=== PATIENT | female | born 1965 | race Caucasian/White ===

== ENCOUNTER 2018-08-18 22:50 | Emergency (ER) | payer BC, OTHER ==
--- OUTSIDE RECORDS SUMMARY | 2018-08-18 22:53 | XMS REPORT | Continuity of Care Document ---
:1965 Author Organization Interface Problems Problem Status Onset Date Classification Date Comments Source Reported Medications Medication Details Route Status Patient Ordering Order Source Instructions Provider Date Allergies, Adverse Reactions, Alerts Substance Category Reaction Severity Reaction Status Date Comments Source type Reported Immunizations Immunization Date Given Site Status Last Updated Comments Source Results Order Results Value Reference Date Interpretation Comments Source Name Range Vital Signs Vital Sign Value Date Comments Source Encounters Location Location Encounter Encounter Reason Attending ADM DC Status Source Details Type Number For Provider Date Date Visit Outpatient [id number] DON[place] 06/23 [facility] [place] [facility] Outpatient [id number] [place] 07/03 [facility] [place] [facility] Procedures Procedure Code Date Perfomer Comments Source
[2018-08-18 23:50] LABS: Absolute Lymphocytes (CBC) 2.7 K/uL (0.7-4.9); Absolute Monocytes 0.7 K/uL (0.1-1.3); Absolute Neutrophil 5.5 K/uL (1.8-8.0); Basophils % 0.4 % (0-1.3); Eosinophils % 2.4 % (0-4.4); Hematocrit 40.9 % (36.0-45.0); Lymphocytes % 29.8 % (15.3-44.8); MPV 8.9 fL (7.6-11.3); Monocytes % 7.9 % (3.3-12.3); RBC Red Blood Cell Count 4.76 M/uL (3.86-4.86)
[2018-08-19 00:09] LABS: BUN Blood Urea Nitrogen 21 mg/dL (7-18); Bicarbonate 27 mmol/L (21-32); Glucose Level 104 mg/dL (74-106); Potassium 4.2 mmol/L (3.5-5.1); Sodium Level 142 mmol/L (136-145); Troponin (Emerg Dept Use Only) < 0.02 ng/mL (0.0-0.045)
[2018-08-19] MEDS ORDERED: cloNIDine HCl 0.1 MG TAB ONE (01:06)
--- NOTE | 2018-08-19 01:27 | EDPHYS ---
Physician Documentation [facility] Name: Priti Calhoun Age: 53 yrs Sex: Female : 1965 Arrival Date: 08/18/2018 Time: 22:57 Bed 5 Private MD: Alexandro Dobbs E ED Physician Cosme Martinez HPI: 08/19 00:03 This 53 yrs old Female presents to ER via Ambulatory with complaints of High rn Blood Pressure. 00:03 The patient has elevated blood pressure and discovered this at home. Onset: The rn symptoms/episode began/occurred at an unknown time. Modifying factors:. Severity of symptoms: At its worst the blood pressure was moderate, in the emergency department the blood pressure is improved. The patient has experienced similar episodes in the past. Reports high blood pressure today, 170/100s, reports 2 weeks or so of intermittent vertigo, denies chest pain/sob/abd pain/focal neurological complaint. Thinks her current BP med is not working, but also doesn't take it regularly. . 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 - Social history:: Smoking status: Patient/guardian denies using tobacco, Patient uses alcohol, occasionally. Patient/guardian denies using street drugs. - Ebola Screening: : Patient negative for fever greater than or equal to 101.5 degrees Fahrenheit, and additional compatible Ebola Virus Disease symptoms Patient denies exposure to infectious person Patient denies travel to an Ebola-affected area in the 21 days before illness onset No symptoms or risks identified at this time. - Family history:: not pertinent. - Hospitalizations: : No recent hospitalization is reported. ROS: 08/19 00:03 Constitutional: Negative for fever, chills, and weight loss, Eyes: Negative for injury, rn pain, redness, and discharge, Neck: Negative for injury, pain, and swelling, Cardiovascular: Negative for chest pain, palpitations, and edema, Respiratory: Negative for shortness of breath, cough, wheezing, and pleuritic chest pain, Abdomen/GI: Negative for abdominal pain, nausea, vomiting, diarrhea, and constipation, MS/Extremity: Negative for injury and deformity, Skin: Negative for injury, rash, and discoloration, Neuro: Negative for headache, weakness, numbness, tingling, and seizure. Exam: 00:03 Constitutional: This is a well developed, well nourished patient who is awake, alert, rn and in no acute distress. Head/Face: Normocephalic, atraumatic. Eyes: Pupils equal round and reactive to light, extra-ocular motions intact. Lids and lashes normal. Conjunctiva and sclera are non-icteric and not injected. Cornea within normal limits. Periorbital areas with no swelling, redness, or edema. Neck: Trachea midline, no thyromegaly or masses palpated, and no cervical lymphadenopathy. Supple, full range of motion without nuchal rigidity, or vertebral point tenderness. No Meningismus. Cardiovascular: Regular rate and rhythm. No JVD. No pulse deficits. Respiratory: Lungs have equal breath sounds bilaterally, clear to auscultation, No increased work of breathing, no retractions or nasal flaring. Abdomen/GI: soft, non-tender MS/ Extremity: Pulses equal, no cyanosis. Neurovascular intact. Full, normal range of motion. Equal circumference. Neuro: Awake and alert, GCS 15, oriented to person, place, time, and situation. Cranial nerves II-XII grossly intact. Motor strength 5/5 in all extremities. Sensory grossly intact. Cerebellar exam normal. Vital Signs: 08/18 23:13 BP 179 / 117; Pulse 84; Resp 16; Temp 98.; Pulse Ox 99% on R/A; Weight 86.18 kg; Height ch 5 ft. 9 in. (175.26 cm); Pain 6/10; 23:47 BP 161 / 108; Pulse 74; Resp 16; Pulse Ox 99% on R/A; Pain 6/10; ch 08/19 00:54 BP 158 / 104; Pulse 76; Resp 16; Pulse Ox 97% on R/A; aa1 01:37 BP 155 / 92; Pulse 73; Resp 16; Pulse Ox 96% on R/A; aa1 08/18 23:13 Body Mass Index 28.06 (86.18 kg, 175.26 cm) ch MDM: 08/18 23:11 Patient medically screened. rn 08/19 01:25 Differential diagnosis: hypertensive crisis, Malignant HTN. Data reviewed: vital signs, rn nurses notes, lab test result(s), EKG, radiologic studies, CT scan, and as a result, I will discharge patient. Counseling: I had a detailed discussion with the patient and/or guardian regarding: the historical points, exam findings, and any diagnostic results supporting the discharge/admit diagnosis, lab results, radiology results, the need for outpatient follow up, to return to the emergency department if symptoms worsen or persist or if there are any questions or concerns that arise at home. Response to treatment: the patient's symptoms have markedly improved after treatment, and as a result, I will discharge patient. Special discussion: I discussed with the patient/guardian in detail that at this point there is no indication for admission to the hospital. It is understood, however, that if the symptoms persist or worsen the patient needs to return immediately for re-evaluation. Based on the history and exam findings, there is no indication for further emergent testing or inpatient evaluation. I discussed with the patient/guardian the need to see the primary care provider for further evaluation of the symptoms. ED course: Recommended BP diary and f/u with pcp for further BP management. . 08/18 23:29 Order name: CBC with Diff; Complete Time: 00:31 rn 08/18 23:29 Order name: Basic Metabolic Panel; Complete Time: 00:31 rn 08/18 23:29 Order name: Troponin (emerg Dept Use Only); Complete Time: 00:31 rn 08/18 23:29 Order name: CT Head Brain wo Cont rn 08/18 23:29 Order name: IV Start; Complete Time: 23:49 rn 08/18 23:29 Order name: EKG; Complete Time: 23:29 rn 08/18 23:29 Order name: EKG - Nurse/Tech; Complete Time: 00:06 rn Administered Medications: 00:59 Drug: cloNIDine 0.1 mg Route: PO; aa1 01:50 Follow up: Response: No adverse reaction; Blood pressure is lowered aa1 01:40 Drug: [place] 5 mg-325 mg 1 tabs Route: PO; aa1 01:51 Follow up: Response: No adverse reaction; Medication administered at discharge. aa1 01:40 Drug: Motrin 600 mg Route: PO; aa1 01:50 Follow up: Response: No adverse reaction; Medication administered at discharge. aa1 Disposition: 08/19/18 01:26 Discharged to Home. Impression: Hypertension, Headache. - Condition is Stable. - Discharge Instructions: Hypertension. - Medication Reconciliation Form, Thank You Letter, Antibiotic Education, Prescription Opioid Use form. - Follow up: Private Physician; When: As needed; Reason: Recheck today's complaints, Re-evaluation by your physician. - Problem is new. - Symptoms have improved. Signatures: Dispatcher [employer] EDMS Arlene Blackmon RN RN Kristin Turner RN RN aa1 Cosme Martinez MD MD registry rn: (The following items were deleted from the chart) 01:54 01:26 08/19/2018 01:26 Discharged to Home. Impression: Hypertension; Headache. aa1 Condition is Stable. Forms are Medication Reconciliation Form, Thank You Letter, Antibiotic Education, Prescription Opioid Use. Follow up: Private Physician; When: As needed; Reason: Recheck today's complaints, Re-evaluation by your physician. Problem is new. Symptoms have improved. rn
--- NOTE | 2018-08-19 01:27 | ER ---
Nurse's Notes [facility] Name: Priti Calhoun Age: 53 yrs Sex: Female : 1965 Arrival Date: 08/18/2018 Time: 22:57 Bed 5 Private MD: Alexandro Dobbs E Diagnosis: Hypertension;Headache Presentation: 08/18 23:10 Presenting complaint: Patient states: Vertigo for the past 2 weeks, my blood pressure ch is up, headache for the past hour. the pharmacy changed my pills, not my prescription but the pills are different and I dont think they are working any more. +nausea, dizziness, headache to top of head. Transition of care: patient was not received from another setting of care. Onset of symptoms was August 03, 2018. Risk Assessment: Do you want to hurt yourself or someone else? Patient reports no desire to harm self or others. Initial Sepsis Screen: Does the patient meet any 2 criteria? No. Patient's initial sepsis screen is negative. Does the patient have a suspected source of infection? No. Patient's initial sepsis screen is negative. Care prior to arrival: None. 23:10 Method Of Arrival: Ambulatory 23:10 Acuity: PAUL 3 ch Triage Assessment: 23:13 General: Appears in no apparent distress. comfortable, Behavior is calm, cooperative, ch appropriate for age. Pain: Complains of pain in top of head, forehead, left frontal area, left temporal area, right frontal area and right temporal area Pain currently is 6 out of 10 on a pain scale. Pain began suddenly, 1 hour ago. Neuro: No deficits noted. Level of Consciousness is awake, alert, obeys commands, Oriented to person, place, time, situation, Prepress Operator are equal bilaterally Moves all extremities. Full function Gait is steady, Speech is normal, Facial symmetry appears normal, Facial symmetry: tongue is midline, Pupils are PERRLA, Reports dizziness, headache. Respiratory: Airway is patent Respiratory effort is even, unlabored, Breath sounds are clear bilaterally. GI: No signs and/or symptoms were reported involving the gastrointestinal system. Derm: Skin is pink, warm \T\ dry. 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 - Social history:: Smoking status: Patient/guardian denies using tobacco, Patient uses alcohol, occasionally. Patient/guardian denies using street drugs. - Ebola Screening: : Patient negative for fever greater than or equal to 101.5 degrees Fahrenheit, and additional compatible Ebola Virus Disease symptoms Patient denies exposure to infectious person Patient denies travel to an Ebola-affected area in the 21 days before illness onset No symptoms or risks identified at this time. - Family history:: not pertinent. - Hospitalizations: : No recent hospitalization is reported. Screenin:16 Abuse screen: Denies threats or abuse. Denies injuries from another. Nutritional ch screening: No deficits noted. Tuberculosis screening: No symptoms or risk factors identified. Fall Risk None identified. Assessment: 23:16 Reassessment: Patient appears in no apparent distress at this time. Patient and/or ch family updated on plan of care and expected duration. Pain level reassessed. 23:47 Reassessment: Patient appears in no apparent distress at this time. No changes from ch previously documented assessment. Patient and/or family updated on plan of care and expected duration. Pain level reassessed. Patient is alert, oriented x 3, equal unlabored respirations, skin warm/dry/pink. 08/19 01:04 Reassessment: Patient appears in no apparent distress at this time. Patient and/or aa1 family updated on plan of care and expected duration. Pain level reassessed. Patient is alert, oriented x 3, equal unlabored respirations, skin warm/dry/pink. Pt resting quietly. Will d/c once DBP <100. 01:53 Reassessment: Patient appears in no apparent distress at this time. Patient is alert, aa1 oriented x 3, equal unlabored respirations, skin warm/dry/pink. Discussed d/c \T\ f/u instructions with pt \T\ significant other; denies questions or concerns at this time Patient states feeling better. Vital Signs: 08/18 23:13 BP 179 / 117; Pulse 84; Resp 16; Temp 98.; Pulse Ox 99% on R/A; Weight 86.18 kg; Height 5 ft. 9 in. (175.26 cm); Pain 6/10; 23:47 BP 161 / 108; Pulse 74; Resp 16; Pulse Ox 99% on R/A; Pain 6/10; ch 08/19 00:54 BP 158 / 104; Pulse 76; Resp 16; Pulse Ox 97% on R/A; aa1 01:37 BP 155 / 92; Pulse 73; Resp 16; Pulse Ox 96% on R/A; aa1 08/18 23:13 Body Mass Index 28.06 (86.18 kg, 175.26 cm) ED Course: 08/18 22:57 Patient arrived in ED. al2 22:57 Alexandro Dobbs MD is Private Physician. al2 23:02 Arlene Blackmon, TAYLOR is Primary Nurse. ch 23:11 Cosme Martinez MD is Attending Physician. rn 23:12 Triage completed. 23:13 Arm band placed on left wrist. Patient placed in an exam room, on a stretcher, on pulse oximetry. 23:16 No apparent distress. Resting quietly. ch 23:16 Patient has correct armband on for positive identification. Placed in gown. Bed in low ch position. Call light in reach. Side rails up X 1. Adult w/ patient. 23:16 No provider procedures requiring assistance completed. 23:47 Pulse ox on. NIBP on. Warm blanket given. 23:47 Initial lab(s) drawn, by sc, sent to lab. 08/19 00:[address] via wheelchair. kw1 00:05 CT completed. Patient tolerated procedure well. Patient moved back from CT. kw1 00:07 CT Head Brain wo Cont In Process Unspecified. EDMS 00:54 Kristin Turner, TAYLOR is Primary Nurse. aa1 01:53 Patient did not have IV access during this emergency room visit. aa1 Administered Medications: 00:59 Drug: cloNIDine 0.1 mg Route: PO; aa1 01:50 Follow up: Response: No adverse reaction; Blood pressure is lowered aa1 01:40 Drug: [place] 5 mg-325 mg 1 tabs Route: PO; aa1 01:51 Follow up: Response: No adverse reaction; Medication administered at discharge. aa1 01:40 Drug: Motrin 600 mg Route: PO; aa1 01:50 Follow up: Response: No adverse reaction; Medication administered at discharge. aa1 Outcome: 01:26 Discharge ordered by . rn 01:53 Discharged to home ambulatory, with significant other. aa1 01:53 Condition: good 01:53 Discharge instructions given to patient, significant other, Instructed on discharge instructions, follow up and referral plans. medication usage, Demonstrated understanding of instructions, follow-up care, medications. 01:54 Patient left the ED. aa1 Signatures: Dispatcher [employer] EDMS Arlene Blackmon, RN Kristin Linton ch, RN RN aa1 Cosme Martinez MD MD rn Wilhelm, Kimberly kw1 Atiya Lara2
[2018-08-19] MEDS ORDERED: IBUPROFEN 200 MG TAB PO ONE (01:49)
[2018-08-19] MEDS ORDERED: IBUPROFEN 400 MG TAB ONE (01:49)
[2018-08-19] MEDS ORDERED: HYDROCODONE/APAP 5/325 MG TAB ONE (01:49)
--- NOTE | 2018-08-19 12:12 | RAD REPORT ---
EXAM DESCRIPTION: CT - Head Brain Wo Cont - 08/19/2018 5:47 am CLINICAL HISTORY: HTN;Dizziness Hypertension, headache COMPARISON: No comparisons TECHNIQUE: All CT scans are performed using dose optimization technique as appropriate and may inclu de automated exposure control or mA/KV adjustment according to patient size. FINDINGS: No intracranial hemorrhage, hydrocephalus or extra-axial fluid collection.No areas of brai n edema or evidence of midline shift. The paranasal sinuses and mastoids are clear. The calvarium is intact. IMPRESSION: No acute intracranial abnormality.
--- NOTE | 2018-08-19 16:28 | EKG ---
Test Date: 2018-08-18 Test Time: 23:51:19 Organizational Development Consultant: MEASUREMENT RESULTS: Intervals: Rate: 69 MD: 136 QRSD: 72 QT: 396 QTc: 424 [place]: P: 58 MD: 136 QRS: 63 T: 37 INTERPRETIVE STATEMENTS: Normal sinus rhythm with sinus arrhythmia Normal ECG Compared to ECG 10/15/1997 12:26:00 No significant changes Electronically Signed On 08-19-18 16:27:22 DIGESTER CAPPER by Valente Lucas
== END 2018-08-19 01:54 | disposition home or self-care (01) ==
LOC: ER 22:50
DX: I10 Essential (primary) hypertension (principal); Z98.82 Breast implant status
CPT/HCPCS: 36415; 70450; 80048; 84484; 85025; 93005; 99284

== ENCOUNTER 2022-07-14 18:14 | Emergency (ER) | payer OTHER ==
--- NOTE | 2022-07-14 19:06 | RAD REPORT ---
EXAM DESCRIPTION: RAD - Chest Single View - 07/14/2022 6:50 pm CLINICAL HISTORY: BLUNT CHEST TRAUMA Chest pain. COMPARISON: CHEST PA AND LAT 2 VIEW dated 07/11/2013 FINDINGS: Portable technique limits examination quality. The lungs are grossly clear. The heart is normal in size. No displaced fractures. IMPRESSION: No acute intrathoracic process suspected.
--- NOTE | 2022-07-14 19:07 | RAD REPORT ---
EXAM DESCRIPTION: RAD - Pelvis - 07/14/2022 6:50 pm CLINICAL HISTORY: BLUNT TRAUMA COMPARISON: No comparisons FINDINGS: No fracture, dislocation or radiographic evidence of AVN. IMPRESSION: Negative study.
[2022-07-14 19:20] LABS: Absolute Lymphocytes (CBC) 1.2 K/uL (0.7-4.9); Hematocrit 44.5 % (36.0-45.0); Lymphocytes % 6.3 % (15.3-44.8); MCV 86.9 fL (80-100); MPV 8.4 fL (7.6-11.3); RBC Red Blood Cell Count 5.12 M/uL (3.86-4.86)
[2022-07-14 19:25] LABS: Protime INR 1.08
[2022-07-14 19:33] LABS: Potassium 4.2 mmol/L (3.5-5.1)
--- NOTE | 2022-07-14 20:06 | RAD REPORT ---
EXAM DESCRIPTION: CT - Head C Spine Cap Clara Rush - 07/14/2022 7:53 pm CLINICAL HISTORY: Trauma, head and neck injury. Chest, abdomen and pelvis pain. fall off horse, possible LOC, sternal pain COMPARISON: No comparisons TECHNIQUE: CT head without contrast. CT cervical spine without contrast with coronal and sagittal reformatted images. CT chest, abdomen and pelvis with IV contrast (approximately 100 mL nonionic IV contrast) with barbosa l and sagittal reformatted images of the spine. All CT scans are performed using dose optimization technique as appropriate and may include automated exposure control or mA/KV adjustment according to patient size. FINDINGS: CT HEAD WITHOUT CONTRAST: No intracranial hemorrhage, hydrocephalus or extra-axial fluid collection. No areas of brain edema o r midline shift. The paranasal sinuses and mastoids are clear. The calvarium is intact. CT CERVICAL SPINE WITHOUT CONTRAST: No fracture or subluxation. The prevertebral soft tissues are normal in thickness.There is a 3.5 cm right thyroid nodule present. CT CHEST, ABDOMEN, PELVIS WITH CONTRAST: The lungs are clear.No pneumothorax or pericardial/pleural fluid. No evidence of intra-abdominal visceral injury, free fluid or free air. No concerning pelvic findings. No fractures. IMPRESSION: Negative for acute traumatic findings. Suggests nonemergent follow-up ultrasound assessment of the large right thyroid nodule described reji ortiz
--- NOTE | 2022-07-14 20:32 | EDPHYS ---
Physician Documentation [facility] Name: Priti Calhoun Age: 57 yrs Sex: Female : 1965 Arrival Date: 07/14/2022 Time: 18:16 Bed 3 Private MD: ED Physician Julius Ornelas HPI: 07/14 18:25 This 57 yrs old Female presents to ER via Unassigned with complaints of Trauma rn Complaint. 18:25 Trauma demographics: Location of Injury: The injury occurred outdoors. Mechanism of rn injury: fall, possible crush. Associated injuries: The patient sustained injury to the head, neck injury, injury to the chest. Onset: The symptoms/episode began/occurred just prior to arrival. The patient has not experienced similar symptoms in the past. The patient has not recently seen a physician. 18:25 Pt s/p fall from horse with horse possibly landing on her, possible LOC, patient does rn not remember events of what happened. No blood thinners. Reports pain to head and chest. . Historical: - Allergies: 18:35 No Known Allergies; jl7 - Home Meds: 18:35 irbesartan 150 mg Oral tab 1 tab once daily [Active]; jl7 - PMHx: 18:35 Hypertension; jl7 - Immunization history:: Client reports having NOT received the Covid vaccine. - Social history:: Smoking status: Patient denies any tobacco usage or history of. - Immunization history: Last tetanus immunization: unknown. - Family history:: not pertinent. - Hospitalizations: : No recent hospitalization is reported. ROS: 18:25 Constitutional: Negative for fever, chills, and weight loss, Eyes: Negative for injury, rn pain, redness, and discharge, Neck: Negative for injury, pain, and swelling, Cardiovascular: + chest pain Respiratory: Negative for shortness of breath, cough, wheezing, and pleuritic chest pain, Abdomen/GI: Negative for abdominal pain, nausea, vomiting, diarrhea, and constipation, Back: Negative for injury and pain, : Negative for injury, bleeding, discharge, and swelling, MS/Extremity: Negative for injury and deformity, Skin: Negative for injury, rash, and discoloration, Neuro: Negative for weakness, numbness, tingling, and seizure. Exam: 18:25 Constitutional: This is a well developed, well nourished patient who is awake, alert, rn seems dazed but cooperative with exam and all questions. Head/Face: Normocephalic, atraumatic. Eyes: Pupils equal round and reactive to light, extra-ocular motions intact. Periorbital areas with no swelling, redness, or edema. ENT: No oral trauma. Neck: No midline cervical tenderness, no crepitus Chest/axilla: + tender anterior chest along sternum Cardiovascular: Regular rate and rhythm. No pulse deficits. Respiratory: Speaking full sentences, unlabored. No increased work of breathing, no retractions or nasal flaring. Abdomen/GI: Soft, non-tender Back: No spinal tenderness. Skin: Warm, dry, no lacerations MS/ Extremity: Pulses equal, no cyanosis. Neurovascular intact. Full, normal range of motion of each extremity to active and passive ROM. Equal circumference. Neuro: Awake and alert, GCS 15, oriented to person, place, not year. Cranial nerves II-XII grossly intact. Motor strength 5/5 in all extremities. Sensory grossly intact. Cerebellar exam normal. 20:41 ECG was reviewed by the Attending Physician. [facility] Vital Signs: 18:16 BP 158 / 92; Pulse 95; Resp 15; Temp 98.7; Pulse Ox 99% ; Weight 83.91 kg; Height 5 ft. jl7 5 in. (165.10 cm); Pain 5/10; 19:38 BP 131 / 78; Pulse 103; Resp 20 S; Pulse Ox 98% on R/A; as6 20:55 BP 172 / 82; Pulse 102; Resp 21 S; Pulse Ox 99% on R/A; as6 18:16 Body Mass Index 30.79 (83.91 kg, 165.10 cm) jl7 Lexie Coma Score: 18:16 Eye Response: spontaneous(4). Verbal Response: confused(4). Motor Response: obeys jl7 commands(6). Total: 14. Trauma Score (Adult): 18:16 Eye Response: spontaneous(1); Verbal Response: confused(1); Motor Response: obeys jl7 commands(2); Systolic BP: > 89 mm Hg(4); Respiratory Rate: 10 to 29 per min(4); [place] Score: 14; Trauma Score: 12 MDM: 18:17 Patient medically screened. rn 19:34 Differential diagnosis: intra-abdominal injury, closed head injury, cardiac contusion, gucci C spine fracture, T spine fracture, L spine fracture. Data reviewed: vital signs, nurses notes, lab test result(s), EKG, radiologic studies, CT scan, plain films. 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 Test interpretation: by ED physician or midlevel provider: ECG, plain radiologic studies. Counseling: I had a detailed discussion with the patient and/or guardian regarding: the historical points, exam findings, and any diagnostic results supporting the discharge/admit diagnosis, lab results, radiology results. 07/14 18:23 Order name: Basic Metabolic Panel; Complete Time: 20:30 rn 07/14 18:23 Order name: CBC with Diff; Complete Time: 19:33 rn 07/14 18:23 Order name: CT Traumagram (Head C Spine CAP W Con); Complete Time: 20:30 rn 08 18:23 Order name: XRAY Chest (1 view); Complete Time: 19:33 rn 08 18:24 Order name: Protime (+inr); Complete Time: 19:33 rn 08 18:24 Order name: Ptt, Activated; Complete Time: 19:33 rn 08 18:23 Order name: XRAY Pelvis; Complete Time: 19:33 rn 08 18:23 Order name: Labs collected and sent; Complete Time: 19:29 rn 08 18:24 Order name: EKG; Complete Time: 18:25 rn 08 18:24 Order name: EKG - Nurse/Tech; Complete Time: 19:37 rn 08 18:24 Order name: Cardiac monitoring; Complete Time: 18:39 rn 08 18:24 Order name: O2 Sat Monitoring; Complete Time: 18:39 rn 08 18:25 Order name: C-Collar; Complete Time: 18:39 rn EC:41 Rate is 102 beats/min. Rhythm is regular. QRS [place] is Normal. [place] interval is normal. gucci QRS interval is normal. QT interval is normal. No Q waves. T waves are Normal. No ST changes noted. Clinical impression: NSR w/ Non-specific ST/T Changes and No evidence of ischemia. Interpreted by me. Reviewed by me. Administered Medications: No medications were administered Disposition Summary: 07/14/22 20:31 Discharge Ordered Location: Home gucci Problem: new gucci Symptoms: have improved gucci Condition: Stable gucci Diagnosis - Strain of muscle and tendon of back wall of thorax gucci - Strain of muscle and tendon of front wall of thorax gucci - Unspecified injury of head, initial encounter gucci - Concussion with loss of consciousness of 30 minutes or less gucci Followup: gucci - With: Private Physician - When: 2 - 3 days - Reason: Recheck today's complaints, Continuance of care, Re-evaluation by your physician Discharge Instructions: - Discharge Summary Sheet gucci - Head Injury, Adult gucci - Thoracic Strain gucci - Head Injury, Adult, [id number] gucci Forms: - Medication Reconciliation Form gucci - Thank You Letter gucci - Antibiotic Education gucci - Prescription Opioid Use gucci Prescriptions: - Diclofenac Sodium 75 mg Oral Tablet Sustained Release - take 1 tablet by ORAL route 2 times per day; 30 tablet; Refills: 0, Product gucci Selection Permitted - Cyclobenzaprine 5 mg Oral Tablet - take 1 tablet by ORAL route 3 times per day As needed; 15 tablet; Refills: 0, gucci Product Selection Permitted Signatures: Dispatcher [employer] EDMS Julius Ornelas MD MD cha Nieto, Roman, MD MD rn Leal, Jahala, RN RN jl7 Alex Rosario RN RN as6 Corrections: (The following items were deleted from the chart) 18:30 18:25 Constitutional: This is a well developed, well nourished patient who is awake, rn alert, seems dazed but cooperative with exam and all questions. Head/Face: Normocephalic, atraumatic. Eyes: Pupils equal round and reactive to light, extra-ocular motions intact. Periorbital areas with no swelling, redness, or edema. Neck: No midline cervical tenderness, no crepitus Chest/axilla: + tender anterior chest along sternum Cardiovascular: Regular rate and rhythm. No pulse deficits. Respiratory: Speaking full sentences, unlabored. No increased work of breathing, no retractions or nasal flaring. Abdomen/GI: Soft, non-tender Back: No spinal tenderness. Skin: Warm, dry, no lacerations MS/ Extremity: Pulses equal, no cyanosis. Neurovascular intact. Full, normal range of motion of each extremity to active and passive ROM. Equal circumference. Neuro: Awake and alert, GCS 15, oriented to person, place, not year. Cranial nerves II-XII grossly intact. Motor strength 5/5 in all extremities. Sensory grossly intact. Cerebellar exam normal. rn
--- NOTE | 2022-07-14 20:32 | ER ---
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 Pt A\\T\\Ox2, unable to remember time and situation; reports tenderness on palpation to right chest wall. 18:16 Care prior to arrival: None. Mechanism of Injury: Crush injury from horse. Trauma event jl7 details: Injury occurred in the [facility], Injury occurred: at home. Injury occurred: July 14, 2022 Injury occurred at: 17:15. 18:16 Acuity: PAUL 2 jl7 18:16 Method Of Arrival: Wheelchair jl7 18:34 Coronavirus screen: At this time, the client does not indicate any symptoms associated jl7 with coronavirus-19. Ebola Screen: No symptoms or risks identified at this time. Initial Sepsis Screen: Does the patient meet any 2 criteria? No. Patient's initial sepsis screen is negative. Does the patient have a suspected source of infection? No. Patient's initial sepsis screen is negative. Risk Assessment: Do you want to hurt yourself or someone else? Patient reports no desire to harm self or others. Onset of symptoms was July 14, 2022 at 17:15. Trauma Activation: Alert Physician: ED Physician; Name: ; Notified At: ; Arrived At: Physician: General Surgeon; Name: ; Notified At: ; Arrived At: Physician: Radiology; Name: ; Notified At: ; Arrived At: Physician: Respiratory; Name: ; Notified At: ; Arrived At: Physician: Lab; Name: ; Notified At: ; Arrived At: Historical: - Allergies: 18:35 No Known Allergies; jl7 - Home Meds: 18:35 irbesartan 150 mg Oral tab 1 tab once daily [Active]; jl7 - PMHx: 18:35 Hypertension; jl7 - Immunization history:: Client reports having NOT received the Covid vaccine. - Social history:: Smoking status: Patient denies any tobacco usage or history of. - Immunization history: Last tetanus immunization: unknown. - Family history:: not pertinent. - Hospitalizations: : No recent hospitalization is reported. Screenin:16 Abuse screen: Denies threats or abuse. Denies injuries from another. Tuberculosis jl7 screening: No symptoms or risk factors identified. 19:49 Nutritional screening: No deficits noted. Fall Risk None identified. as6 Primary Survey: 18:16 NO uncontrolled hemorrhage observed. A: The client is alert. Airway: patent. jl7 Breathing/Chest: Respiratory effort: spontaneous, unlabored. Circulation: Skin color: pink. Disability Client is alert. Exposure/Environment: All clothing and personal items were removed. Forensic evidence collection is not deemed to be indicated at this time. Items placed in patient belonging bag. There is no evidence of uncontrolled external bleeding. No obvious injuries are noted at this time. A warming method has been applied: A warm blanket has been provided to the patient. 19:49 Reassessment Alertness and Airway: Awake and alert. The airway is patent. Breathing: as6 Spontaneous respiratory effort, equal unlabored respirations, breath sounds clear bilaterally, regular pattern with symmetrical chest rise and fall. Circulation: No external hemorrhage noted. Regular and strong central pulse, skin warm/dry/normal color. Disability: Pupils Pupils are equal, round, reactive to light and accomodation. Alert. Assessment: 19:39 General: Appears in no apparent distress. Behavior is calm, cooperative. Pain: as6 Complains of pain in thoracic area. Neuro: Level of Consciousness is awake, alert, obeys commands, confused, Oriented to pt repeating "what happened? I don't remember" . Cardiovascular: Capillary refill < 3 seconds Patient's skin is warm and dry. Respiratory: Respiratory effort is even, unlabored. Derm: Skin is intact, is healthy with good turgor. Vital Signs: 18:16 BP 158 / 92; Pulse 95; Resp 15; Temp 98.7; Pulse Ox 99% ; Weight 83.91 kg; Height 5 ft. jl7 5 in. (165.10 cm); Pain 5/10; 19:38 BP 131 / 78; Pulse 103; Resp 20 S; Pulse Ox 98% on R/A; as6 20:55 BP 172 / 82; Pulse 102; Resp 21 S; Pulse Ox 99% on R/A; as6 18:16 Body Mass Index 30.79 (83.91 kg, 165.10 cm) jl7 Lexie Coma Score: 18:16 Eye Response: spontaneous(4). Verbal Response: confused(4). Motor Response: obeys jl7 commands(6). Total: 14. Trauma Score (Adult): 18:16 Eye Response: spontaneous(1); Verbal Response: confused(1); Motor Response: obeys jl7 commands(2); Systolic BP: > 89 mm Hg(4); Respiratory Rate: 10 to 29 per min(4); [place] Score: 14; Trauma Score: 12 ED Course: 18:16 Patient arrived in ED. as 18:16 Patient has correct armband on for positive identification. jl7 18:16 Patient maintains SpO2 saturation greater than 95% on room air. Thermoregulation: warm jl7 blanket given to patient. 18:17 Cosme Martinez MD is Attending Physician. rn 18:32 Triage completed. jl7 18:35 Arm band placed on right wrist. jl7 18:52 XRAY Chest (1 view) In Process Unspecified. EDMS 18:52 XRAY Pelvis In Process Unspecified. EDMS 19:01 Alex Rosario, RN is Primary Nurse. as6 19:11 Attending Physician role handed off by Cosme Martinez MD gucci 19:11 Julius Ornelas MD is Attending Physician. gucci 19:55 CT Traumagram (Head C Spine CAP W Con) In Process Unspecified. EDMS 21:03 No provider procedures requiring assistance completed. IV discontinued, intact, as6 bleeding controlled, No redness/swelling at site. Pressure dressing applied. Administered Medications: No medications were administered Medication: 21:03 VIS not applicable for this client. as6 Output: 21:04 Urine: 300ml (Voided); Total: 300ml. as6 Outcome: 20:31 Discharge ordered by . gucci 21:03 Discharged to home via wheelchair, with significant other. as6 21:03 Condition: stable 21:03 Patient's length of stay in the Emergency Department was greater than 2 hours. pending imaging Patient's length of stay extended due to 21:03 Discharge instructions given to patient, significant other, Instructed on discharge as6 instructions, follow up and referral plans. medication usage, Demonstrated understanding of instructions, follow-up care, medications, Prescriptions given X 2. 21:05 Patient left the ED. as6 Signatures: Dispatcher [employer] EDJulius Tan MD MD cha Martinez, Amelia as Nieto, Roman, MD MD rn Leal, Jahala, RN RN jl7 Alex Rosario RN RN as6
[2022-07-14 21:15] VITALS: TEMP 98.7
[2022-07-14 21:18] VITALS: BP 172/82; O2SAT 99
--- NOTE | 2022-07-15 17:38 | EKG ---
Test Date: 2022-07-14 Test Time: 19:34:05 Machine Cloth Measurer: MEASUREMENT RESULTS: Intervals: Rate: 102 ND: 124 QRSD: 74 QT: 354 QTc: 461 [place]: P: 69 ND: 124 QRS: 71 T: 48 INTERPRETIVE STATEMENTS: Sinus tachycardia Otherwise normal ECG Compared to ECG 08/18/2018 23:51:19 Sinus rhythm no longer present Sinus arrhythmia no longer present Electronically Signed On 07-15-22 17:37:04 DIRECTOR OF CONTRACTS by Diaz Childs
== END 2022-07-14 21:05 | disposition home or self-care (01) ==
LOC: ER 18:14
DX: S06.0X1A Concussion with loss of consciousness of 30 minutes or less, initial encounter (principal); S29.012A Strain of muscle and tendon of back wall of thorax, initial encounter; S29.011A Strain of muscle and tendon of front wall of thorax, initial encounter; V80.010A Animal-rider injured by fall from or being thrown from horse in noncollision accident, initial encounter; I10 Essential (primary) hypertension
CPT/HCPCS: 93005; 85025; 80048; 36415; 85610; 85730; 70450; 72125; 71260; 74177; 71045; 72170; 99284; Q9967